=== PATIENT | male | born 1960 | race Caucasian/White ===

== ENCOUNTER 2017-04-23 18:52 | Emergency (ER) | payer OTHER ==
[~2017-04-23] VITALS: Ht 182.9 cm; Wt 86.4 kg
[~2017-04-23 18:52] MED LIST: DOXYCYCLINE 10100 MG PO; EFFEXOR XR75 MG/CAP PO; LEVAQUIN 5500 MG/TA1 PO; LOPID 600M600 MG/TAB PO; LORTAB 5/500 501 TAB PO; METAMUCIL1 PDR PO; MINIPRESS2 MG PO; NEURONTIN300 MG/CAP PO; NORCO 325 MG-51 TAB PO; PAMELOR75 MG PO; PERCOCET 325 MG1 TA2 PO; PERCOCET 325 MG1 TAB PO; PREDNISONE20 MG PO; SEROQUEL XR400 M1 PO; SEROQUEL400 MG PO; VOLTAREN 75 DR75 MG PO; ZOFRAN 4MG T4 MG/TAB PO; ZOFRAN ODT4 MG PO
[2017-04-23 18:53] VITALS: BP 124/100; PULSE 75; TEMP 97.1
[2017-04-23] MEDS ORDERED: VALIUM 5MG T5 MG/TAB PO (19:06)
[2017-04-23 20:12] LABS: BASO # 0.1 (0.0-0.2); BASO % 0.3 % (0.0-2.0); EOS # 0.1 (0.0-0.7); EOS % 0.6 % (0-4.0); GRAN # 13.8 (1.4-6.5); GRAN % 85.7 % (42.2-75.2); HEMATOCRIT 46.4 % (42.0-52.0); HEMOGLOBIN 15.5 g/dl (13.5-18.0); LYMPH # 1.4 (1.2-3.4); LYMPH % 8.5 % (20.0-51.0); MEAN CELL VOLUME 90 fl (80.0-100.0); MEAN CORPUSCULAR HEMOGLOBIN 30 pg (27.0-31.0); MEAN CORPUSCULAR HGB CONC 33 g/dl (33.0-37.0); MEAN PLATELET VOLUME 8.7 fl (7.4-10.4); MONO # 0.7 (0.1-0.6); MONO % 4.4 % (1.7-9.3); PLATELET COUNT 241 K/mm3 (130-400); RED BLOOD COUNT 5.15 M/mm3 (4.20-5.60); REDCELL DISTRIBUTION WIDTH-CV 13.2 % (11.5-14.5); WHITE BLOOD COUNT 16.2 K/mm3 (4.8-10.8)
[2017-04-23] MEDS ORDERED: ULTRAM 50MG TAB50 MG PO (21:02)
== END 2017-04-23 21:20 | disposition home or self-care (01) ==
LOC: COL.ER 18:52
PROVIDERS: Emergency Medicine
DX: R11.10 Vomiting, unspecified (principal); F41.9 Anxiety disorder, unspecified; F43.10 Post-traumatic stress disorder, unspecified; F32.9 Major depressive disorder, single episode, unspecified
CPT/HCPCS: J1200; J1630; J2250; J2405; J7030

== ENCOUNTER 2017-05-27 08:30 | Emergency (ER) | payer OTHER ==
[~2017-05-27] VITALS: Ht 182.9 cm; Wt 81.4 kg
[~2017-05-27 08:30] MED LIST changes: +ULTRAM 50MG TAB50 MG PO; +VALIUM 5MG T5 MG/TAB PO
[2017-05-27 08:33] VITALS: TEMP 98.3
[2017-05-27] MEDS ORDERED: ZOFRAN 4MG T4 MG/TAB PO (10:55)
[2017-05-27 11:48] VITALS: BP 136/97; PULSE 84
== END 2017-05-27 11:50 | disposition home or self-care (01) ==
LOC: COL.ER 08:30
DX: F41.0 Panic disorder [episodic paroxysmal anxiety] (principal); R11.2 Nausea with vomiting, unspecified; R19.7 Diarrhea, unspecified; F20.9 Schizophrenia, unspecified; F31.9 Bipolar disorder, unspecified; F43.10 Post-traumatic stress disorder, unspecified; F17.210 Nicotine dependence, cigarettes, uncomplicated
CPT/HCPCS: J1630; J2060; J2405; J2550; J7030

== ENCOUNTER 2017-07-11 21:34 | Emergency (ER) | payer OTHER ==
[~2017-07-11] VITALS: Ht 182.9 cm; Wt 81.8 kg
[2017-07-11 21:37] VITALS: BP 118/91
[2017-07-11] MEDS ORDERED: ZOFRAN ODT4 MG PO (23:39)
[2017-07-12 00:04] VITALS: PULSE 71
== END 2017-07-12 00:04 | disposition home or self-care (01) ==
LOC: COL.ER 21:34
DX: R19.7 Diarrhea, unspecified (principal); R11.10 Vomiting, unspecified; G89.29 Other chronic pain; M54.9 Dorsalgia, unspecified; F41.0 Panic disorder [episodic paroxysmal anxiety]; F17.210 Nicotine dependence, cigarettes, uncomplicated
CPT/HCPCS: J1200; J1630; J2060; J2405; J2550; J7030

== ENCOUNTER 2017-09-01 18:29 | Emergency (ER) | payer OTHER ==
[~2017-09-01] VITALS: Ht 182.9 cm; Wt 81.8 kg
[2017-09-01 18:32] VITALS: BP 145/92; TEMP 97.9
[2017-09-01] MEDS ORDERED: ULTRAM 50MG TAB50 MG PO (20:40)
[2017-09-01 20:44] VITALS: PULSE 66
== END 2017-09-01 20:44 | disposition home or self-care (01) ==
LOC: COL.ER 18:29
DX: F41.0 Panic disorder [episodic paroxysmal anxiety] (principal)
CPT/HCPCS: J1630; J2060; J2550

== ENCOUNTER 2017-09-22 16:05 | Emergency (ER) | payer OTHER ==
[~2017-09-22] VITALS: Ht 182.9 cm; Wt 81.8 kg
[2017-09-22 16:08] VITALS: TEMP 98
[2017-09-22 18:10] LABS: BASO % 0.2 % (0.0-2.0); EOS % 0.1 % (0-4.0); GRAN # 18.2 (1.4-6.5); GRAN % 90.2 % (42.2-75.2); HEMATOCRIT 46.4 % (42.0-52.0); HEMOGLOBIN 15.9 g/dl (13.5-18.0); LYMPH # 1.2 (1.2-3.4); LYMPH % 5.7 % (20.0-51.0); MEAN CELL VOLUME 88 fl (80.0-100.0); MEAN CORPUSCULAR HEMOGLOBIN 30 pg (27.0-31.0); MEAN CORPUSCULAR HGB CONC 34 g/dl (33.0-37.0); MEAN PLATELET VOLUME 8.7 fl (7.4-10.4); MONO # 0.7 (0.1-0.6); MONO % 3.5 % (1.7-9.3); PLATELET COUNT 430 K/mm3 (130-400); RED BLOOD COUNT 5.26 M/mm3 (4.20-5.60); REDCELL DISTRIBUTION WIDTH-CV 13.8 % (11.5-14.5)
[2017-09-22 18:19] LABS: ALANINE AMINOTRANSFERASE 38 U/L (21-72); ALBUMIN 4.7 gm/dL (3.5-5.0); ALCOHOL(ethanol),MEDICAL < 10 mg/dL; ALKALINE PHOSPHATASE 102 U/L (50-136); ANION GAP 10 mmol/L (7-16); AST,SGOT 25 U/L (15-37); BILIRUBIN,TOTAL 0.4 mg/dL (0.0-1.0); BLOOD UREA NITROGEN 15 mg/dL (9-20); CARBON DIOXIDE 25 mmol/L (22-30); CHLORIDE 106 mmol/L (98-107); GLUCOSE 113 mg/dL (74-106); POTASSIUM 4.1 mmol/L (3.4-5.0); SODIUM 142 mmol/L (137-145); TOTAL PROTEIN 7.6 gm/dL (6.4-8.2)
[2017-09-22 19:00] LABS: TRICYCLIC ANTIDEPRESS URINE POSITIVE
[2017-09-22 19:51] VITALS: BP 121/82; PULSE 80
== END 2017-09-22 19:52 | disposition home or self-care (01) ==
LOC: COL.ER 16:05
PROVIDERS: Nurse Practitioner Primary Care
DX: F41.0 Panic disorder [episodic paroxysmal anxiety] (principal); F20.9 Schizophrenia, unspecified; F43.10 Post-traumatic stress disorder, unspecified; F17.210 Nicotine dependence, cigarettes, uncomplicated
CPT/HCPCS: J1630; J2060; J2550; J7030

== ENCOUNTER 2019-08-17 09:59 | Emergency (ER) | payer OTHER ==
[~2019-08-17] VITALS: Ht 182.9 cm; Wt 77.3 kg
[2019-08-17 10:11] VITALS: TEMP 97.6
[2019-08-17 10:55] LABS: HEMATOCRIT 44.9 % (42.0-52.0); HEMOGLOBIN 15.5 g/dl (13.5-18.0); MEAN CELL VOLUME 88 fl (80.0-100.0); MEAN CORPUSCULAR HEMOGLOBIN 31 pg (27.0-31.0); MEAN CORPUSCULAR HGB CONC 35 g/dl (33.0-37.0); MEAN PLATELET VOLUME 8.8 fl (7.4-10.4); PLATELET COUNT 373 K/mm3 (130-400); RED BLOOD COUNT 5.08 M/mm3 (4.20-5.60); REDCELL DISTRIBUTION WIDTH-CV 13.6 % (11.5-14.5)
[2019-08-17 11:09] LABS: ALANINE AMINOTRANSFERASE 19 U/L (21-72); ALBUMIN 4.3 gm/dL (3.5-5.0); ALKALINE PHOSPHATASE 104 U/L (50-136); ANION GAP 11 mmol/L (7-16); AST,SGOT 20 U/L (15-37); BILIRUBIN,TOTAL 0.3 mg/dL (0.0-1.0); BLOOD UREA NITROGEN 17 mg/dL (9-20); CALCIUM 9.6 mg/dL (8.4-10.2); CARBON DIOXIDE 21 mmol/L (22-30); CHLORIDE 108 mmol/L (98-107); CREATININE, serum 0.84 (0.66-1.25); GLUCOSE 125 mg/dL (74-106); LIPASE 31 U/L (23-300); POTASSIUM 3.9 mmol/L (3.4-5.0); SODIUM 139 mmol/L (137-145); TOTAL PROTEIN 7.3 gm/dL (6.4-8.2)
[2019-08-17 11:11] LABS: C-REACTIVE PROTEIN < 0.5 mg/dL (0.0-0.9)
[2019-08-17 11:30] LABS: BAND 2 % (0-10); LYMPHOCYTE 4 % (20.0-51.0); NEUTROPHILS 92 % (42.0-75.2); PLATELET ESTIMATE NORMAL (NORMAL)
[2019-08-17 12:00] VITALS: BP 108/78; PULSE 75
== END 2019-08-17 12:00 | disposition home or self-care (01) ==
LOC: COL.ER 09:59
PROVIDERS: Emergency Medicine
DX: F41.0 Panic disorder [episodic paroxysmal anxiety] (principal); R11.2 Nausea with vomiting, unspecified; F20.9 Schizophrenia, unspecified; F17.210 Nicotine dependence, cigarettes, uncomplicated; F43.10 Post-traumatic stress disorder, unspecified; Z90.49 Acquired absence of other specified parts of digestive tract
CPT/HCPCS: J2060; J2405; J7030

== ENCOUNTER 2021-02-12 11:55 | Inpatient (IN) | payer OTHER ==
[~2021-02-12] VITALS: Ht 182.9 cm; Wt 90.0 kg
[2021-02-12 12:48] LABS: BASO % 0.2 % (0.0-2.0); EOS % 0.1 % (0-4.0); GRAN # 17.5 (1.4-6.5); GRAN % 88.5 % (42.2-75.2); HEMATOCRIT 45.5 % (42.0-52.0); HEMOGLOBIN 16.1 g/dl (13.5-18.0); LYMPH # 0.9 (1.2-3.4); LYMPH % 4.3 % (20.0-51.0); MEAN CELL VOLUME 91 fl (80.0-100.0); MEAN CORPUSCULAR HEMOGLOBIN 32 pg (27.0-31.0); MEAN CORPUSCULAR HGB CONC 35 g/dl (33.0-37.0); MEAN PLATELET VOLUME 8.4 fl (7.4-10.4); MONO # 1.2 (0.1-0.6); MONO % 6.1 % (1.7-9.3); PLATELET COUNT 404 K/mm3 (130-400); RED BLOOD COUNT 5.02 M/mm3 (4.20-5.60); REDCELL DISTRIBUTION WIDTH-CV 13.8 % (11.5-14.5)
[2021-02-12 12:56] LABS: ALANINE AMINOTRANSFERASE 55 U/L (4-49); ALBUMIN 4.5 gm/dL (3.5-5.0); ALKALINE PHOSPHATASE 117 U/L (50-136); ANION GAP 11 mmol/L (7-16); AST,SGOT 55 U/L (15-37); BILIRUBIN,TOTAL 0.3 mg/dL (0.0-1.0); BLOOD UREA NITROGEN 12 mg/dL (9-20); C-REACTIVE PROTEIN 0.6 mg/dL (0.0-0.9); CALCIUM 9.6 mg/dL (8.4-10.2); CARBON DIOXIDE 18 mmol/L (22-30); CHLORIDE 106 mmol/L (98-107); CREATININE, serum 0.76 (0.66-1.25); GLUCOSE 136 mg/dL (74-106); LIPASE 1276 U/L (23-300); POTASSIUM 3.6 mmol/L (3.4-5.0); SODIUM 136 mmol/L (137-145); TOTAL PROTEIN 7.7 gm/dL (6.4-8.2)
[2021-02-12 13:07] LABS: TROPONIN-I < 0.012 ng/mL (0.000-0.035)
[2021-02-12 18:12] VITALS: BP 143/92; PULSE 102; TEMP 98.5
[2021-02-12] MEDS ORDERED: BUSPAR5 MG PO (19:17)
[2021-02-12] MEDS ORDERED: PROZAC 20MG20 MG PO (19:18)
[2021-02-12] MEDS ORDERED: MIRALAX238G PO (19:19)
[2021-02-12] MEDS ORDERED: MINIPRESS 5M5 MG/CAP PO (19:20)
[2021-02-12] MEDS ORDERED: SEROQUEL 1100 MG/TAB PO (19:20)
[2021-02-12] MEDS ORDERED: SEROQUEL50 MG PO (19:21)
[2021-02-12] MEDS ORDERED: ULTRAM 50MG TAB50 MG PO (19:22)
[2021-02-12] MEDS ORDERED: SEROQUEL XR400 M1 PO (19:23)
[2021-02-12] MEDS ORDERED: ONE-A-DAY ESSE1 EACH PO (19:24)
[2021-02-12] MEDS ORDERED: SEROQUEL400 MG PO (19:33)
--- NOTE | 2021-02-12 22:22 | NUR ---
Patient assessed around 1999. Alert and oriented x 4, and able to make needs know. Complained of level 10 pain to abdomen, cramping. Given PRN Morphine around 1999. At 2134, continues to have level 8 pain to abdomen, and was given PRN Morphine. Was also given PRN Zofran around 1999. Wanted to get some jello, and explained that he was NPO for bowel rest, and voiced understanding. Took HS medications with sips of water. Peripheral IV to left hand with fluids running per orders. Denies having SOB and dyspnea. LS CTA. Respirations even and unlabored. HRR. Telemetry in place. Capillary refill less than 3 seconds. non-tenting skin turgor. BSAx4. Abdomen distended, firm. No edema. Voices no further questions, needs, or concerns at this time. Resting in bed with call light within reach.
[2021-02-13] VITALS: BP 156/98; PULSE 116; TEMP 99.4
[2021-02-13 03:57] VITALS: BP 137/86; PULSE 114; TEMP 99
--- NOTE | 2021-02-13 06:10 | NUR ---
Patient has received PRN Morphine and PRN Zofran for pain/nausea during the night. See MAR for times. Patient not able to get any sleep during the night. Voices no questions, needs, or concerns at this time. Asked about food/drink. Reminded that he is NPO for bowel rest, and voiced understanding.
[2021-02-13 07:48] LABS: HEMATOCRIT 45.6 % (42.0-52.0); HEMOGLOBIN 15.9 g/dl (13.5-18.0); MEAN CELL VOLUME 91 fl (80.0-100.0); MEAN CORPUSCULAR HEMOGLOBIN 32 pg (27.0-31.0); MEAN CORPUSCULAR HGB CONC 35 g/dl (33.0-37.0); MEAN PLATELET VOLUME 8.9 fl (7.4-10.4); PLATELET COUNT 350 K/mm3 (130-400)
[2021-02-13 08:12] LABS: ALBUMIN 3.4 gm/dL (3.5-5.0); BILIRUBIN,TOTAL 0.4 mg/dL (0.0-1.0); CALCIUM 8.3 mg/dL (8.4-10.2); CREATININE, serum 0.7 (0.66-1.25); MAGNESIUM 1.5 mg/dL (1.6-2.3); POTASSIUM 3.7 mmol/L (3.4-5.0); TOTAL PROTEIN 6.2 gm/dL (6.4-8.2)
[2021-02-13 08:19] VITALS: BP 123/70; PULSE 107; TEMP 97.9
[2021-02-13 08:39] LABS: LYMPHOCYTE 2 % (20.0-51.0); NEUTROPHILS 96 % (42.0-75.2); PLATELET ESTIMATE NORMAL (NORMAL)
[2021-02-13 10:08] LABS: COLLECTION METHOD CLEAN CATCH
[2021-02-13 10:17] LABS: MUCOUS Present /lpf; PH 5 (5-8); SQUAMOUS EPITHELIAL 0-2 /hpf; URINE APPEARANCE Hazy; URINE BACTERIA None Seen /hpf; URINE BILIRUBIN Negative (NEGATIVE); URINE BLOOD 2+ (NEGATIVE); URINE COLOR Yellow; URINE GLUCOSE 2+ (NEGATIVE); URINE KETONE Negative (NEGATIVE); URINE LEUKOCYTE ESTERASE Negative (NEGATIVE); URINE NITRATE Negative (NEGATIVE); URINE PROTEIN(semi-quant) 1+ (NEGATIVE); URINE UROBILINOGEN Negative (NEGATIVE)
[2021-02-13 11:40] VITALS: BP 120/70; PULSE 119; TEMP 98.5
--- NOTE | 2021-02-13 12:04 | NUR ---
Plan is to return home with Sindi Patient reports that his PCP is at [facility] david [facility]. [facility]. Patient reports that they handle all the medications. Denies any DME use or need for home health. Patient shares that he wants to just get better. Educated on supports for care and upon DC. No identified concerns. Will follow.
[2021-02-13 16:39] VITALS: BP 142/87; PULSE 111; TEMP 98.1
--- NOTE | 2021-02-13 19:50 | NUR ---
Received report from Janette. Patient complains of abdominal pain with pain score of 6-7/10. Morphine given. Denies being nauseous right now.
[2021-02-13 21:03] VITALS: BP 106/68; PULSE 113; TEMP 98.2
[2021-02-14] VITALS (7 sets, daily range): BP systolic 100–150; BP diastolic 66–108; PULSE 83–117; TEMP 98–98.7
--- NOTE | 2021-02-14 06:11 | NUR ---
Patient was complaining of severe abdominal pain and nausea. Morphine and Phenergan given. He wants to pass on day shift if he can have any laxative since he haven't poop yet for 4 days already.
[2021-02-14 06:51] LABS: HEMATOCRIT 41.4 % (42.0-52.0); HEMOGLOBIN 14.3 g/dl (13.5-18.0); MEAN CELL VOLUME 92 fl (80.0-100.0); MEAN CORPUSCULAR HEMOGLOBIN 32 pg (27.0-31.0); MEAN CORPUSCULAR HGB CONC 35 g/dl (33.0-37.0); MEAN PLATELET VOLUME 8.9 fl (7.4-10.4); PLATELET COUNT 292 K/mm3 (130-400); RED BLOOD COUNT 4.51 M/mm3 (4.20-5.60)
[2021-02-14 07:02] LABS: ALBUMIN 2.9 gm/dL (3.5-5.0); BILIRUBIN,TOTAL 0.5 mg/dL (0.0-1.0); CALCIUM 7.5 mg/dL (8.4-10.2); CREATININE, serum 0.73 (0.66-1.25); MAGNESIUM 1.8 mg/dL (1.6-2.3); POTASSIUM 3.3 mmol/L (3.4-5.0); TOTAL PROTEIN 5.6 gm/dL (6.4-8.2)
[2021-02-14 07:58] LABS: BAND 5 % (0-10); EOSINOPHIL 1 % (0-4); LYMPHOCYTE 1 % (20.0-51.0); NEUTROPHILS 93 % (42.0-75.2); PLATELET ESTIMATE NORMAL (NORMAL)
--- NOTE | 2021-02-14 09:55 | NUR ---
Pt assessment complete. Pt is laying in bed upon entry, he is A/O x4. His breathing is even and unlabored on RA. Pt denies SOB. Currently rating pain 8/10 to abdomen. Not passing gas as of right now, reports belching. Requesting something to have a BM, has been a few days. Currently having nausea, PRN meds given. POC discussed, call light within reach.
--- NOTE | 2021-02-14 10:35 | NUR ---
Initial visit; Patient thanked Women'S Garment Fitter for looking in on him and offering God's blessings and Prayer. Women[employer]S Garment Fitter will follow up.
--- NOTE | 2021-02-14 18:28 | NUR ---
Pt asking for ice chips this afternoon, explained bowel rest and NPO status. Pt verbalizes understanding. IVF infusing without complications. Pt did have a BM this afternoon. No further needs at this time.
--- NOTE | 2021-02-14 19:21 | NUR ---
Received report from Janelle. Patient awake in bed. Still complains of having nausea and abdominal pain. He wants his Morphine and Phenergan given together with his night medicines.
[2021-02-15 00:33] VITALS: BP 129/97; PULSE 103; TEMP 98.1
[2021-02-15 04:00] VITALS: BP 137/80; PULSE 100; TEMP 98.4
--- NOTE | 2021-02-15 05:43 | NUR ---
Patient was complaining of low back pain. Morphine was given but states it doesn't really work. He said that he has chronic back pain and thinks it might be the bed mattress that causing it. Offered to change his bed mattress and he agreed on it. Called fish housekeeper and Vincent said she can be able to get it by morning. Informed the patient and he said he might be discharged by the time the mattress arrives.
--- NOTE | 2021-02-15 07:08 | NUR ---
At around 0600H, patient was complaining about her pain regimen. He said he doesn't feel like we're giving him Morphine and it was just water. Informed him that he is getting the medicine as needed for his pain. He said that for 4 days he wasn't able to eat and drink and his medicines were messed up. He wanted to leave AMA. Informed Dr. Haley of patient's plan. AMA form signed by patient. IV and tele were removed. ICU informed that patient is leaving and tele was discontinued. 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
== END 2021-02-15 07:00 | disposition left against medical advice (07) | DRG 440 ==
LOC: COL.ER 11:55 → MEDICAL 13:36 → COL.ER 13:36 → MEDICAL 02-15 07:00
PROVIDERS: Family Medicine; ADMIT Internal Medicine
DX: K85.90 Acute pancreatitis without necrosis or infection, unspecified (principal); F31.9 Bipolar disorder, unspecified; F43.10 Post-traumatic stress disorder, unspecified; K59.00 Constipation, unspecified; D72.829 Elevated white blood cell count, unspecified; R73.9 Hyperglycemia, unspecified; E78.5 Hyperlipidemia, unspecified; M54.5 Low back pain; G89.29 Other chronic pain; K29.80 Duodenitis without bleeding; K76.0 Fatty (change of) liver, not elsewhere classified; K80.50 Calculus of bile duct without cholangitis or cholecystitis without obstruction
CPT/HCPCS: OP; 99223-AI; 99232-AI; 99233-AI; C9113; J1170; J1650; J2060; J2270; J2405; J2543; J2550; J2765; J7030; J7120; Q9967

== ENCOUNTER 2022-04-13 13:34 | Observation (INO) | payer OTHER ==
[~2022-04-13] VITALS: Ht 182.9 cm; Wt 81.8 kg
[~2022-04-13 13:34] MED LIST changes: +BUSPAR5 MG PO; +LIBRIUM 10M10 MG/CAP PO; +MINIPRESS 5M5 MG/CAP PO; +MIRALAX238G PO; +MOBIC15 MG PO; +ONE-A-DAY ESSE1 EACH PO; +PROZAC 20MG20 MG PO; +ROXICODONE 55 MG/TAB PO; +SEROQUEL 1100 MG/TAB PO; +SEROQUEL50 MG PO
[2022-04-13 14:12] LABS: BASO # 0.1 K/mm3 (0.0-0.2); BASO % 0.3 % (0.0-2.0); EOS % 0.1 % (0.0-4.0); GRAN % 87.7 % (42.2-75.2); HEMATOCRIT 44.5 % (42.0-52.0); HEMOGLOBIN 15.7 g/dl (13.5-18.0); LYMPH # 1.2 K/mm3 (1.2-3.4); MEAN CELL VOLUME 87 fl (80.0-100.0); MEAN CORPUSCULAR HEMOGLOBIN 31 pg (27-31); MEAN CORPUSCULAR HGB CONC 35 g/dl (33.0-37.0); MEAN PLATELET VOLUME 8.8 fl (7.4-10.4); PLATELET COUNT 399 K/mm3 (130-400); RED BLOOD COUNT 5.14 M/mm3 (4.20-5.60); REDCELL DISTRIBUTION WIDTH-CV 14.1 % (11.5-14.5)
[2022-04-13 14:19] LABS: ALANINE AMINOTRANSFERASE 25 U/L (0-55); ALBUMIN 4.2 gm/dL (3.4-4.8); ALKALINE PHOSPHATASE 98 U/L (40-150); ANION GAP 13 mmol/L (7-16); AST,SGOT 17 U/L (5-34); BILIRUBIN,TOTAL 0.3 mg/dL (0.2-1.2); BLOOD UREA NITROGEN 12 mg/dL (8-26); CALCIUM 9.7 mg/dL (8.4-10.2); CARBON DIOXIDE 20 mmol/L (23-31); CHLORIDE 103 mmol/L (98-107); CREATININE, serum 0.87 mg/dL (0.72-1.25); GLUCOSE 129 mg/dL (70-99); LIPASE 179 U/L (8-78); POTASSIUM 3.8 mmol/L (3.5-4.5); SODIUM 136 mmol/L (136-145); TOTAL PROTEIN 7.6 gm/dL (6.2-8.1)
[2022-04-13 14:27] LABS: TROPONIN-I < 0.010 ng/mL (0.00-0.033)
[2022-04-13 16:05] LABS: COLLECTION METHOD CLEAN CATCH
[2022-04-13 16:08] LABS: URINE APPEARANCE Clear (CLEAR/HAZY); URINE COLOR Yellow (YELLOW)
[2022-04-13 16:09] LABS: PH 6.5 (5.0-8.5); URINE BLOOD TRACE-INTACT (NEGATIVE); URINE GLUCOSE Negative (NEGATIVE); URINE KETONE Negative (NEGATIVE); URINE NITRATE Negative (NEGATIVE); URINE PROTEIN(semi-quant) Negative (NEGATIVE); URINE UROBILINOGEN 0.2 E.U/dL (0.2-1.0)
[2022-04-13 16:11] LABS: SQUAMOUS EPITHELIAL None Seen /hpf (0-10); URINE BACTERIA None Seen /hpf (NONE SEEN); URINE RBC 0-2 /hpf (0-2)
--- NOTE | 2022-04-13 17:10 | NUR ---
PT ADMITTED TO ROOM 356, VSS, PT A&O X4, PT ABLE TO MAKE NEEDS KNOWN, PT RESTING IN BED, PT REPORTS PAIN TO ABD AND NAUSEA, FALL PRECAUTIONS IN PLACE, CALL LIGHT IN REACH, PT UPDATED ON PLAN OF CARE
[2022-04-13 19:16] VITALS: BP 152/95; PULSE 92; TEMP 98.9
--- NOTE | 2022-04-13 21:50 | NUR ---
BEDSIDE SHIFT REPORT RECEIVED FROM RN. PT CURRENTLY RESTING IN BED. NO CURRENT C/O PAIN OR DISCOMFORT AT THIS TIME. LINES RUNNING ACCORDING TO REPORT (SEE DRIP FLOW SHEET). VSS.
[2022-04-14 00:10] VITALS: BP 153/91; PULSE 94; TEMP 98
[2022-04-14 03:50] VITALS: BP 148/91; PULSE 96; TEMP 98.3
--- NOTE | 2022-04-14 05:49 | NUR ---
COULD HEAR THE PATIENT THROWING UP FROM THE NURSING STATION. WHEN THIS RN WENT TO CHECK ON HIM, THE PATIENT HAD HIS FINGERS DOWN HIS THROAT TRYING TO MAKE HIMSELF THROW I. THERE ARE NO OTHER CONCERNS AT THIS TIME. INFORMED PRIMARY RN OF WHAT HAD BEEN SEEN.
[2022-04-14 07:10] LABS: HEMATOCRIT 44.3 % (42.0-52.0); HEMOGLOBIN 15.4 g/dl (13.5-18.0); MEAN CELL VOLUME 87 fl (80.0-100.0); MEAN CORPUSCULAR HEMOGLOBIN 30 pg (27-31); MEAN CORPUSCULAR HGB CONC 35 g/dl (33.0-37.0); MEAN PLATELET VOLUME 8.7 fl (7.4-10.4); PLATELET COUNT 371 K/mm3 (130-400); RED BLOOD COUNT 5.11 M/mm3 (4.20-5.60)
--- NOTE | 2022-04-14 07:30 | NUR ---
Pt vss,alert and orient x4, c/o of abdominal pain,in the morning, prn pain meds given and pt advise to eat breakfast. due meds given as prescribed, no adverse reaction note.
[2022-04-14 07:35] LABS: CALCIUM 8.9 mg/dL (8.4-10.2); CREATININE, serum 0.78 mg/dL (0.72-1.25); PHOSPHOROUS 2.4 mg/dL (2.3-4.7); POTASSIUM 3.6 mmol/L (3.5-4.5)
[2022-04-14 08:20] LABS: BAND 1 % (0-10); NEUTROPHILS 91 % (42.0-75.2); PLATELET ESTIMATE NORMAL (NORMAL)
[2022-04-14 08:26] LABS: LYMPHOCYTE 3 % (20.0-51.0)
--- NOTE | 2022-04-14 09:47 | NUR ---
Initial visit; Patient and his thanked Creative Services Director for looking in on him and listening to his story, offering encouragement, comfort and prayer for healing from alcohol and all that harms him. They thanked Creative Services Director for her visit.
--- NOTE | 2022-04-14 10:11 | NUR ---
Initial visit; Patient and his thanked Regional Account Executive for looking in on [place], talking with him and his . He spoke of his alcoholism and how his pancreas gives him trouble when he eats something he shouldn't or drinks. He is working a program or has at least in the past. Patient and his are very devoted to eachother and thanked Regional Account Executive for prayer and encouragement.
[2022-04-14 11:36] VITALS: BP 117/68; PULSE 92; TEMP 98.8
--- NOTE | 2022-04-14 13:30 | NUR ---
pt discharged from the unit to home, vss, alert and orient x4, denies complaints. iv removed tip intact,tele removed. discharge summary given, discharge instruction provided verbalize understanding.pt esccorted out of the building ambulatory, in company of the spouse.
== END 2022-04-14 13:34 | disposition home or self-care (01) ==
LOC: COL.ER 13:34 → MEDICAL 16:12
PROVIDERS: Emergency Medicine; ADMIT Internal Medicine
DX: K85.90 Acute pancreatitis without necrosis or infection, unspecified (principal); D72.829 Elevated white blood cell count, unspecified; R73.9 Hyperglycemia, unspecified; R00.0 Tachycardia, unspecified; R65.10 Systemic inflammatory response syndrome (SIRS) of non-infectious origin without acute organ dysfunction; F17.210 Nicotine dependence, cigarettes, uncomplicated; Z20.822 Contact with and (suspected) exposure to COVID-19; F31.9 Bipolar disorder, unspecified; F43.10 Post-traumatic stress disorder, unspecified; F20.9 Schizophrenia, unspecified; F41.9 Anxiety disorder, unspecified
CPT/HCPCS: G0378; J1170; J1200; J1790; J2270; J2405; J2550; J2765; J3010; J7030; J7120; Q9967

== ENCOUNTER → 2024-05-16 | Outpatient (CLI) | payer OTHER | LOC: COL.RAD 07:25 | DX: M47.817 Spondylosis without myelopathy or radiculopathy, lumbosacral region (principal); M51.26 Other intervertebral disc displacement, lumbar region; M48.061 Spinal stenosis, lumbar region without neurogenic claudication; M48.07 Spinal stenosis, lumbosacral region ==

== ENCOUNTER → 2024-06-11 | Outpatient (CLI) | payer OTHER | LOC: COL.RAD 09:19 | DX: Z12.2 Encounter for screening for malignant neoplasm of respiratory organs (principal); R91.8 Other nonspecific abnormal finding of lung field; Z87.891 Personal history of nicotine dependence ==